=== PATIENT | male | born 1950 | race Caucasian/White ===

== ENCOUNTER 2017-10-16 21:07 | Observation (INO) | payer MEDICARE, OTHER ==
[2017-10-16 22:16] LABS: ABS Basophils 0.1 10^3/ul (0-0.2); ABS Eosinophils 0.2 10^3/ul (0-0.6); ABS Lymphocytes 0.8 10^3/ul (1.0-4.8); ABS Monocytes 0.8 10^3/ul (0-0.8); ABS Neutrophils 8.7 10^3/ul (1.5-7.7); ABS Nucleated RBC 0 10^3/ul; Hematocrit 39 % (42-52); Hemoglobin 13.2 g/dl (14.0-18.0); Lymphocyte % 7.8 % (25-47); Mean Corpuscular HGB Conc 34 g/dl (31-36); Mean Corpuscular Hemoglobin 32 pg (27-31); Mean Corpuscular Volume 95 fL (80-94); Mean Platelet Volume 8.5 um3 (7.4-10.4); Nucleated Red Blood Cells % 0; Platelet Count 183 10^3/ul (150-450); Red Blood Count 4.07 10^6/ul (4.00-5.40); Red Cell Distribution Width 14 % (10.5-15); White Blood Count 10.6 10^3/ul (3.5-10.8)
[2017-10-16 22:34] LABS: EGFR Non-African American 80.6 (>60)
--- NOTE | 2017-10-16 23:53 | ED ---
Syncope/Near Syncope - HPI Summary HPI Summary: This is scribe Chaavsolomon Martini documenting for attending Dr. Emily Marie MD. A 67 y/o male THAO presents to ED s/p syncopal episode. Currently, the patient feels fine as he has no pain anywhere, however he is hungry. In the ED room, the patient has a pulse of 47 BPM, O2 saturation of 96% and blood pressure of 106/63. According to the patient, he was opening a second beer right after dinner (had 1 beer with dinner) when he suddenly felt lightheaded, dizzy, and sick to his stomach. Additionally, he had a feeling of losing control of his mouth. The symptoms were followed by LOC that was witnessed by his brother. He then woke up to his brother rubbing his arms. He did note that he smoked a couple of "tokes" (marijuana) prior to incident. The marijuana was noted to be clean and trusted. As per brother, the patient was unconcious for about 4-5 minutes. He noted that the patient was unresponsive and couldn't tell if he was breathing, however he was clammy. Furthermore, he stated that the patient stopped mid-sentence and slumped over, however he did not fall. Pt denies any calf pain, chest pain, SOB, headache, dizziness or neck pain. The patients eyes were open during episode, but they shut after a while after being slumped over. As per sister in law, the patient was spiting up and was shaky after episode. Furthermore the patient was not acting like himself. He woke up on his own and went to lay down on a bench after the incident. The patient was mumbling words/ couldn't talk well, however his speaking improved when EMS arrived. His brother believes that the patient seems pretty fine now. Ambulance, [facility] and fire department were on site. Incident occurred at [facility]. It was noted that the patients normal heart rate is low. Pt drove all day from [place] (6 hours) today and had 1 bottle of sweet soda for food all day. PCP is in [place] PMHx of diverticulitis and diverticulosis, no seizure. No medications at home. Major surgeries were for a broken nose. No allergies to medications. FHx of lung cancer (smokers), no CVA or seizures. SHx of occassional marijuana and ETOH. No stress test in was ever done on patient. - History Of Current Complaint Chief Complaint: EDSyncope Time Seen by Provider: 10/16/17 23:47 Hx Obtained From: Patient Onset/Duration: Sudden Onset Timing: Minutes - 4-5 minutes Context: Witnessed, Loss Of Consciousness Activity At Onset: Other - Drinking 2nd beer Aggravating Factor(s): Nothing Alleviating Factor(s): Nothing Associated Signs And Symptoms: Dizzy, Lightheadedness - Allergies/Home Medications Allergies/Adverse Reactions: Allergies Allergy/AdvReac Type Severity Reaction Status Date / Time No Known Allergies Allergy Verified 10/16/17 21:59 Home Medications: Home Medications Metamucil Powder DAILY 10/17/17 [History] PMH/Surg Hx/FS Hx/Imm Hx GI History: Reports: Hx Diverticulosis, Other GI Disorders - Diverticulitis - Immunization History Immunizations Up to Date: Yes Infectious Disease History: No Infectious Disease History: Denies: Traveled Outside the [place] in Last 30 Days - Family History Known Family History: Positive: Other - Lung cancer - Social History Alcohol Use: Daily Substance Use Type: Reports: Marijuana Smoking Status (MU): Never Smoked Tobacco Review of Systems Negative: Fever Negative: Chest Pain Negative: Shortness Of Breath Positive: Other - NEGATIVE: Calf pain, neck pain Neurological: Other - POSITIVE: LOC; NEGATIVE: Dizziness, lightheaded Negative: Headache All Other Systems Reviewed And Are Negative: Yes Physical Exam - Summary Physical Exam Summary: Appearance: Well-appearing, moderate pain distress, well-nourished Skin:Warm, color reflects adequate perfusion, dry Head:Normal Head/Face inspection, atraumatic Eyes: Conjunctiva clear ENT:Normal inspection Neck:Supple, no nodes, no JVD Respiratory: Lungs clear, normal breath sounds, no respiratory distress Cardio: RRR, No murmur, pulses normal, brisk capillary refill Abdomen: Soft, nontender Bowel sounds: Present Musculoskeletal: Strength Intact/ROM intact, no calf tenderness, no edema. Psychological: Normal Neuro: Alert, muscle tone normal, no focal deficit GCS: 15 Triage Information Reviewed: Yes Vital Signs On Initial Exam: Initial Vitals Pulse Resp BP Pulse Ox 41 13 123/67 99 10/16/17 21:18 10/16/17 21:18 10/16/17 21:18 10/16/17 21:18 Vital Signs Reviewed: Yes Diagnostics - Vital Signs Vital Signs Temp Pulse Resp BP Pulse Ox 10/16/17 22:00 50 17 98 10/16/17 21:48 48 18 118/56 98 10/16/17 21:42 98 F 48 17 123/67 99 10/16/17 21:18 41 13 123/67 99 - Laboratory Lab Results: Lab Results 10/16/17 10/16/17 10/16/17 Range/Units 22:01 22:01 22:02 WBC 10.6 (3.5-10.8) 10^3/ul RBC 4.07 (4.00-5.40) 10^6/ul Hgb 13.2 L (14.0-18.0) g/dl Hct 39 L (42-52) % MCV 95 H (80-94) fL MCH 32 H (27-31) pg MCHC 34 (31-36) g/dl RDW 14 (10.5-15) % Plt Count 183 (150-450) 10^3/ul MPV 8.5 (7.4-10.4) um3 Neut % (Auto) 81.6 (38-83) % Lymph % (Auto) 7.8 L (25-47) % Steele % (Auto) 7.7 H (0-7) % Eos % (Auto) 2.0 (0-6) % Baso % (Auto) 0.9 (0-2) % Absolute Neuts (auto) 8.7 H (1.5-7.7) 10^3/ul Absolute Lymphs (auto) 0.8 L (1.0-4.8) 10^3/ul Absolute Monos (auto) 0.8 (0-0.8) 10^3/ul Absolute Eos (auto) 0.2 (0-0.6) 10^3/ul Absolute Basos (auto) 0.1 (0-0.2) 10^3/ul Absolute Nucleated RBC 0 10^3/ul Nucleated RBC % 0 Sodium 140 (135-145) mmol/L Potassium 3.9 (3.5-5.0) mmol/L Chloride 107 (101-111) mmol/L Carbon Dioxide 25 (22-32) mmol/L Anion Gap 8 (2-11) mmol/L BUN 17 (6-24) mg/dL Creatinine 0.93 (0.67-1.17) mg/dL Est GFR ( Amer) 97.5 (>60) Est GFR (Non-Af Amer) 80.6 (>60) BUN/Creatinine Ratio 18.3 (8-20) Glucose 128 H (70-100) mg/dL Lactic Acid 0.9 (0.5-2.0) mmol/L Calcium 8.4 L (8.6-10.3) mg/dL Magnesium 1.9 (1.9-2.7) mg/dL Total Bilirubin 0.40 (0.2-1.0) mg/dL AST 13 (13-39) U/L ALT 12 (7-52) U/L Alkaline Phosphatase 31 L (34-104) U/L Troponin I 0.01 (<0.04) ng/mL Total Protein 5.9 L (6.4-8.9) g/dL Albumin 3.4 (3.2-5.2) g/dL Globulin 2.5 (2-4) g/dL Albumin/Globulin Ratio 1.4 (1-3) TSH 1.48 (0.34-5.60) mcIU/mL Result Diagrams: 10/16/17 22:02 10/16/17 22:01 Lab Statement: Any lab studies that have been ordered have been reviewed, and results considered in the medical decision making process. - CT BRAIN CT CT Interpretation Completed By: Radiologist - 1. No acute findings. 2. Mild parechymal volume loss with microvascular white matter disease. ED physician reviewed this radiology report. - EKG 2210 Cardiac Rate: Bradycardia - 45 BPM EKG Rhythm: Sinus Bradycardia EKG Interpretation: nl AMADEO CT, nl QTc, no acute changes. EKG Comparison: Other - No prior to compare. Course/Dx Course Of Treatment: A 67 y/o male THAO presents to ED s/p syncopal episode. A EKG reveals sinus bradycardia of 45 BPM, nl AMADEO CT, nl QTc and no acute changes. A Brain CT reveals 1. No acute findings. 2. Mild parechymal volume loss with microvascular white matter disease. In the ED course, the patient reiceved Maalox, Tylenol, Zofran, Heparin and IV fluids. Patient care was discussed with Hospitalist, Dr. Mcqueen, who accepts patient for admission. Pt will be admitted with diagnosis of syncope. - Diagnoses Provider Diagnoses: Syncope - Physician Notifications Discussed Care of Patient With: Ailin Mcqueen Time Discussed With Above Provider: 03:30 Instructed by Provider To: Other - Accepts patient for admission. Discharge - Sign-Out/Discharge Documenting (check all that apply): Patient Departure - ADMIT - Discharge Plan Condition: Stable Disposition: ADMITTED TO [facility]
[2017-10-17 00:53] LABS: Urine Appearance Cloudy; Urine Blood Negative (Negative); Urine Color Yellow; Urine Ketones 1+ (Negative); Urine Protein 1+(30 mg/dL) (Negative); Urine Red Blood Cell Absent (Absent); Urine Urobilinogen Positive (Negative); Urine White Blood Cell Absent (Absent)
[2017-10-17] MEDS ORDERED: Ondansetron INJ* 2 MG/ML VIAL IV PRN (03:17)
[2017-10-17] MEDS ORDERED: Acetaminophen TAB* 325 MG PO PRN (03:17)
[2017-10-17] MEDS ORDERED: Al Hydrox/Mg Hydrox/Simet LIQ* 30 ML UDC PO PRN (03:17)
[2017-10-17] MEDS ORDERED: NS 0.9% 1000 ML* 1,000 ML IV ONE (03:19)
--- NOTE | 2017-10-17 06:11 | HP ---
CC: Dr. Farfan from [facility] in [place], [place] * HISTORY AND PHYSICAL: DATE OF ADMISSION: 10/17/17 TIME OF EVALUATION: 0300. PRIMARY CARE PHYSICIAN: Dr. Farfan from [facility] in [place], [place]. CHIEF COMPLAINT: Syncope. HISTORY OF PRESENT ILLNESS: This is a 67-year-old male with an unremarkable past medical history who presented to the emergency room via EMS after having a syncopal episode. The patient drove up from [place] today to visit his brother. He states he did not eat very much; he ate on the car ride almost an entire box of Triscuits and a soda, came to his brother's house, he did have a full dinner with a beer and 2 tokes of marijuana, which is not unusual for him. He went to go [place]. After a few minutes of sitting at the dock, he can feel lightheaded and dizzy and had a syncopal episode. According to the brother, he was out for about 3 to 5 minutes. He was having some tremors. No urinary or stool incontinence. When EMS arrived, he finally ; however, his speech was slurred and he was very out of it. It took him sometime to come to. Also, there was a question of possible staring episode according to the brother. Prior to losing consciousness, the patient also felt nauseated and felt like losing control of his mouth. He slumped over and he stopped talking in sentence. His eyes were open and then he slumped forward. He was spitting up and shaking according to the brother. The patient states about 10 years ago, he had an episode of syncope, but this was after a lot of drinking. The patient denies any associated chest pain. No shortness of breath. No recent illness. No fever. No nausea, vomiting, or diarrhea. No abdominal pain. No headache. No vision changes. No weakness, numbness, or tingling. Otherwise, review of systems is negative. In the emergency room, the patient had labs and imaging and was referred to the hospitalist service for further evaluation. PAST MEDICAL HISTORY: History of diverticulosis. MEDICATIONS: None. SOCIAL HISTORY: The patient lives in [place]. He works as a contractor. No tobacco use. He smokes marijuana every other day. He drinks about 1 beer about 4 to 5 days of the week. No other illicit drug use. His healthcare proxy is his , Kimmie Messina. Code status is full dose. The patient is very physically active; he runs 3 miles and swims 1 mile every other day. FAMILY HISTORY: Mother from emphysema. Father from lung cancer. REVIEW OF SYSTEMS: A 14-point review of systems as mentioned in the HPI, otherwise negative. PHYSICAL EXAMINATION GENERAL: No acute distress, resting comfortably. VITAL SIGNS: Temp 98.3, pulse rate 50, respiratory rate 18, oxygen saturation 95 % on room air, blood pressure 106/63. HEENT: Head: Normocephalic. Pupils are equal and reactive. Anicteric. Oropharynx: Mucous membranes are moist. NECK: Supple. No lymphadenopathy. RESPIRATORY: Clear to auscultation. No wheezing, rhonchi, or rales. CARDIAC: Bradycardic. Soft systolic murmur heard throughout. ABDOMEN: Soft, nontender, nondistended. EXTREMITIES: No clubbing, cyanosis, or edema. +1 DPs. NEUROLOGICAL: Alert and oriented x3. No gross focal neurologic deficits. Upper and lower muscle strength equal and symmetric. Cranial nerves II through XII intact. LABORATORY DATA: White count 10.6, hemoglobin 13.2, hematocrit 39, platelets 183. D-dimer less than 200. Sodium 140, potassium 3.9, chloride 107, bicarb ___ ___, BUN 17, creatinine 0.93, glucose 128. Troponin is 0.01 x2. CRP is 21. Urinalysis shows +1 ketones. RADIOGRAPHIC DATA: EKG shows sinus bradycardia, QTc of 394. Head CT on wet read is unremarkable. ASSESSMENT AND PLAN: This is a 67-year-old male with unremarkable past medical history, who had a syncopal episode. 1. Syncope. Assessment: It could potentially be vasovagal; however, part of this presentation is concerning for a possible seizure like episode. His initial workup is unremarkable. There is no concern for cardiac ischemia. Negative troponins and negative D-dimer. Plan: We will check orthostatics. We will check a drug screen and tox, alcohol level. We will give him a liter of fluid. We will order an EEG and an echo in the morning and neuro checks q.4 hours. If any further abnormalities are involved in the workup or during his inpatient stay, I would recommend further Neurology workup. 2. FEN. Regular diet. 3. DVT prophylaxis: The patient scores moderate risk. Place him on heparin subcu t.i.d. 4. Code status: Full code. PATIENT TIME: Greater than 45 minutes were spent doing the history and physical , more than half of the time was spent in direct patient contact. [id number]/[facility] #: [id number] SAM
[2017-10-17] MEDS: Heparin VIAL(*) 5000 UNITS/ML VIAL (FIVE THOUSAND) SUBCUT SCH ×2 (06:19→14:30)
--- NOTE | 2017-10-17 09:10 | RAD ---
HISTORY: syncope, bradycardia COMPARISONS: None TECHNIQUE: Multiple contiguous axial CT scans were obtained of the head without intravenous contrast. FINDINGS: HEMORRHAGE/INFARCT: There is no hemorrhage or acute infarct. MASSES/SHIFT: There is no mass or shift. EXTRA-AXIAL SPACES: There are no extra-axial fluid collections. SULCI AND VENTRICLES: The sulci and ventricles are normal in size and position for the patient's stated age. CEREBRUM: There is mild hypoattenuation of the periventricular and subcortical white matter. BRAINSTEM: There are no focal parenchymal abnormalities. CEREBELLUM: There are no focal parenchymal abnormalities. VESSELS: The vessels are grossly normal. PARANASAL SINUSES: The paranasal sinuses are clear. ORBITS: The orbits are unremarkable. BONES AND SOFT TISSUE: No bone or soft tissue abnormalities are noted. OTHER: None IMPRESSION: NO ACUTE INTRACRANIAL PATHOLOGY. R0
[2017-10-17 15:09] VITALS: BP 117/59
--- NOTE | 2017-10-17 15:22 | ECHO ---
Patient: MELISSA REYNOSO [facility] Rec#: [id number] : 1950 Date: 10/17/2017 Age: 67y Height: 165.1 cm / 65.0 in Weight: 72.12 kg / 159.0 lbs Sex: M BSA: 1.79 Room#: [facility] Admit Date#: 10/16/2017 Type: Inpatient Referring: Ailin Mcqueen Reading: Tim Sparks DO Sagger Preparer: Emily Hicks RD Transthoracic Echocardiogram Indication: Syncope BP: 127/59 HR: 58 Rhythm: Bradycardia Findings History: Daily cannabis use Technical Comments: The study quality is fair. Completed at 1245. Left Ventricle: The left ventricular chamber size is normal. Mild concentric left ventricular hypertrophy is observed. There is normal left ventricular systolic function. The estimated ejection fraction is greater than 65%. There is no consistent Doppler evidence of clinically significant diastolic dysfunction. Left Atrium: The left atrium is mild to moderately dilated. Right Ventricle: The right ventricular chamber size and systolic function are within normal limits. Right Atrium: The right atrium is mildly dilated. Aortic Valve: The aortic valve is trileaflet. There is no evidence of aortic valve thickening. There is no evidence of aortic regurgitation. There is no evidence of aortic stenosis. Mitral Valve: The mitral valve leaflets do not appear thickened. There is a trace of mitral regurgitation. There is no evidence of mitral stenosis. Tricuspid Valve: The tricuspid valve leaflets are normal. There is trace tricuspid regurgitation. No pulmonary hypertension is noted. Pulmonic Valve: The pulmonic valve appears normal. There is no evidence of pulmonic regurgitation. There is no pulmonic stenosis. Pericardium: There is no significant pericardial effusion. Aorta: There is no dilatation of the ascending aorta. There is no dilatation of the aortic arch. The aortic root is normal in size. Pulmonary Artery: The main pulmonary artery is not well visualized. Venous: The inferior vena cava appears normal in size. There is an approximate 50% respiratory change in the inferior vena cava dimension. Conclusions The left ventricular chamber size is normal. Mild concentric left ventricular hypertrophy is observed. There is normal left ventricular systolic function. The estimated ejection fraction is 65-70% The left atrium is mild to moderately dilated. The right ventricular chamber size and systolic function are within normal limits. No significant valvular abnormalities noted. None prior for comparison at time of interpretation Measurements Name Value Normal Range RVIDd (AP) 2D 3.2 cm (0.9 - 2.6) RAd ISD 4CH 5.2 cm (3.4 - 4.9) RA (A4C)W 5 cm (2.9 - 4.6) IVSd (2D) 1.2 cm (0.6 - 1) LVPWd (2D) 1.2 cm (0.6 - 1) LVIDd (2D) 4.1 cm (3.6 - 5.4) LVIDs (2D) 2.4 cm - LV FS (2D) 41 % (25 - 45) Aortic Annulus 2.3 cm (1.4 - 2.6) Ao root diameter (2D) 3.5 cm (2.1 - 3.5) Ascending Ao 3.4 cm (2.1 - 3.4) Aortic arch 2 cm (1.8 - 3.4) LA dimension (AP) 2D 4.2 cm (2.3 - 3.8) LAd ISD 4CH 4.9 cm (2.9 - 5.3) LA ISD 4CH W 4.2 cm (2.5 - 4.5) Name Value Normal Range LA ESV SP 4CH (A/L) 44 ml - LA ESV BP (A/L) 80 ml - LA ESV BP (A/L) index 45 ml/m2 - LA ESV SP 4CH (MOD) 43 ml - LA ESV SP 2CH (MOD) 110 ml - Name Value Normal Range MV E-wave Vmax 0.86 m/sec - MV deceleration time 261.71 msec - MV A-wave Vmax 0.67 m/sec - MV E:A ratio 1.28 ratio - LV septal e' Vmax 0.07 m/sec - LV lateral e' Vmax 0.14 m/sec - LV E:e' septal ratio 12.29 ratio - LV E:e' lateral ratio 6.14 ratio - Name Value Normal Range AV Vmax 1.4 m/sec - AV VTI 30.03 cm - AV peak gradient 8.24 mmHg - AV mean gradient 4.47 mmHg - LVOT Vmax 0.89 m/sec - LVOT VTI 22.39 cm - LVOT peak gradient 3.18 mmHg - LVOT mean gradient 1.91 mmHg - GONZALEZ Vmax 0.76 m/sec - Name Value Normal Range TR Vmax 2.3 m/sec - TR peak gradient 21 mmHg - RAP 8 mmHg - RVSP 29 mmHg - IVC diameter 2.1 cm - Name Value Normal Range PV Vmax 0.91 m/sec - PV peak gradient 3.38 mmHg -
--- NOTE | 2017-10-17 16:11 | EEG ---
ELECTROENCEPHALOGRAPHY: DATE OF STUDY: 10/17/17 PATIENT OF: Dr. Mcqueen. CLINICAL PROBLEM: This 67-year-old man being evaluated for a syncopal episode to evaluate for seizur es. MEDICATIONS: Include: 1. Tylenol. 2. Heparin. 3. Maalox. 4. Zofran. REPORT: With the patient awake, background cerebral activity consists of moderate amplitude posterio r dominant 9 Hz rhythm with some admixed beta activity. With the patient asleep, background consists of diffuse irregular delta and theta activity. No epileptiform potentials, focal abnormalities, or major asymmetries of background are noted. This EEG was called to Dr. Fuchs today. [id number]/[facility] #: [id number]
--- NOTE | 2017-10-18 00:10 | DS ---
ADDENDUM NOW INCLUDED ON THIS REPORT CC: Primary Care Provider... DISCHARGE SUMMARY: DATE OF ADMISSION: 10/17/17 DATE OF DISCHARGE: 10/17/17 PRIMARY CARE PROVIDER: Physician in [place], [place]. DISCHARGE DIAGNOSIS: Syncope, likely vasovagal. LABORATORY DATA AND STUDIES PERFORMED DURING THE HOSPITAL STAY: Included: The patient's D-dimer was below 200. The patient's troponin was 0.01 twice. The patient's urine toxicology screen was positive was cannabinoids. The patient's EEG that a preliminary verbal report that I received from the neurology department showed no epileptiform abnormalities and grossly was not abnormal. The patient's echocardiogram obtained today, on the day of discharge, showed EF of 65% to 70% with mild concentric LVH and no significant valvular abnormalities. The patient's brain CT obtained on 10/17/17, impression: "No acute intracranial pathology." HOSPITALIZATION COURSE: Deangelo Mayo is a 67-year-old male who was visiting his brother from [place]. He stated that he really did not eat much or drink much on the way from [place] to [place] and he arrived on 10/16/17. After a large dinner, he sat down and he had some marijuana and after that, he had a syncopal episode. For further details of the patient's presentation, please see history and physical dictated by Dr. Mcqueen. Shortly, the patient was placed for overnight observation with a diagnosis of syncope, likely vagal. His hospital monitor did not show any marked abnormalities. His further workup included negative EEG and echocardiogram that was grossly unremarkable. At this point, the presumption is that the patient's syncope was vasovagal. He is recommended to follow up with his primary care provider in 4 to 7 days after discharge. PHYSICAL EXAM AT THE TIME OF DISCHARGE: Blood pressure of 117/59, heart rate of 56 and regular, respiratory rate 16, oxygen saturation 96% on room air. General: The patient is a very pleasant 67-year-old male, who is in no acute distress. Alert, awake, oriented x3. HEENT: Head: Atraumatic, normocephalic. Eyes: Pupils are equal, reactive to light and accommodation. Oropharynx is clear. Mucosa moist. Neck: Supple. No JVD. No bruits bilaterally. Cardiovascular: Regular rate and rhythm. No murmur. Respiratory : Clear to auscultation bilaterally. Abdomen: Soft, nontender. Bowel sounds present in all 4 quadrants. Extremities: There is no edema. Pulses are +2 bilaterally. No clubbing or cyanosis. Neuro Evaluation: Speech is clear. Cranial nerves II through XII grossly intact. Motor strength is 5/5 bilaterally. Psychiatric Evaluation: Oriented x3, but no evidence of anxiety or depression. Please note that this is a short summary of the patient's hospitalization. Please refer to further medical records for details. TIME SPENT: Approximately 35 minutes were spent on the patient's discharge. ADDENDUM: Please note that the patient had sinus bradycardia throughout his hospital stay with the heart rate low as recorded at 41. Nevertheless, he was never symptomatic of the bradycardia and his orthostatic blood pressures were unremarkable. His blood pressure at its low was at 103. At this point, there was no indication for further cardiac evaluation. [id number]/[facility] #: [id number] A- [id number]/[facility] #: [id number] [facility]
--- NOTE | 2017-10-18 00:36 | DS ---
DISCHARGE SUMMARY: ADDENDUM: Please note that the patient had sinus bradycardia throughout his hospital stay with the heart rate low as recorded at 41. Nevertheless, he was never symptomatic of the bradycardia and his orthostatic blood pressures were unremarkable. His blood pressure at its low was at 103. At this point, there was no indication for further cardiac evaluation. [id number]/[facility] #: [id number] MTDD
--- NOTE | 2017-10-22 02:54 | DS ---
DISCHARGE SUMMARY: DATE OF ADMISSION: DATE OF DISCHARGE: 10/17/17 ADDENDUM: Addendum to discharge summary that I dictated on 10/17/17 is as follows: Please note that patient's medication at discharge is the same as at admission, which is Metamucil on a p.r.n. basis. Patient has not been taking any other medications. [id number]/[facility] #: [id number] MTDD
== END 2017-10-17 15:15 | disposition home or self-care (01) ==
LOC: ED 21:07 → MEDTELE 10-17 03:17
PROVIDERS: ADMIT Pediatrics; ATTEND Internal Medicine
DX: R55 Syncope and collapse (principal); Z87.19 Personal history of other diseases of the digestive system; R42 Dizziness and giddiness; F12.90 Cannabis use, unspecified, uncomplicated; Z80.1 Family history of malignant neoplasm of trachea, bronchus and lung
CPT/HCPCS: 36415; 70450; 80053; 80307; 80320; 81003; 81015; 83605; 83735; 84443; 84484; 85025; 85379; 86140; 93005; 93306; 95819; 96374; 99284; G0378; G0480; J1644